=== PATIENT | female | born 1960 | race Caucasian/White ===

== ENCOUNTER 2016-10-09 12:32 | Emergency (ER) | payer MEDICARE, MEDICAID ==
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
[2016-10-09 12:39] VITALS: BP 121/73
== END 2016-10-09 14:10 | disposition home or self-care (01) ==
LOC: DL.ED 12:32
DX: M54.32 Sciatica, left side (principal); F41.9 Anxiety disorder, unspecified; F32.9 Major depressive disorder, single episode, unspecified; Z88.0 Allergy status to penicillin; Z88.2 Allergy status to sulfonamides; Z79.4 Long term (current) use of insulin; Z79.899 Other long term (current) drug therapy
CPT/HCPCS: 72100; 99283; 99284

== ENCOUNTER → 2017-06-14 | Day surgery (SDC) | payer MEDICARE, MEDICAID ==
[~2017-06-14] MED LIST: Balanced Salt Solution Ophth Irrig 500 ML Bottle IOCULAR ONE; Cataract Ophth Solution EYERT ONE; EPINEPHrine 1 MG/ML SDV ONE; Lidocaine 1% 30 ML SDV ONE; Lidocaine 4% 5 ML Amp EYERT ONE; Midazolam 1 MG/ML 2 ML SDV IV ONE; Moxifloxacin 0.5% Ophth Soln 3 ML Bottle EYERT ONE; Povidone-Iodine 5% Sterile Ophth Soln 30 ML Bottle EYERT ONE; Sodium Chloride 0.9% 10 ML Syringe FLUSH PRN; prednisoLONE Acetate 1% Ophth Susp 5 ML Bottle EYERT ONE
--- NOTE | 2017-06-14 11:06 | PCM.OPNOTE ---
- General Post-Op/Procedure Note Date of Surgery/Procedure: 06/14/17 Operative Procedure(s): Cataract extraction with lens implant right eye Findings: As above Pre Op Diagnosis: Cataract right eye Post-Op Diagnosis: Same Anesthesia Technique: MAC Primary Surgeon: Roberto Guerra Anesthesia Provider: Humza Pathology: None EBL in mLs: 0 Complications: None Condition: Good Free Text/Narrative:: PROCEDURE: After the risks and benefits of the procedure were explained informed consent was obtained from the patient and the patient was taken to the operating room. The patient was given topical Lidocaine 4% drops in the right eye. The patient was then prepped and draped in the sterile [facility] fashion. A wire lid speculum was placed in the right eye. A clear cornea temporal approach was used. A 7515 enterprise blade was used to make a paracentesis site around 11:00. Preservative-free Lidocaine 1% was injected intracamerally. Viscoelastic was placed in the anterior chamber. A 2.65 mm keratome blade was used to make a clear corneal incision around 9:00. A cystotome needle and Utrata forceps were used to perform continuous curvilinear capsulorhexis. Balanced Salt Solution was used to perform hydrodissection and hydrodelineation. The lens nucleus was removed using the divide and conquer phacoemulsification technique. Cumulative dissipated energy was 1.57. Remaining cortex was removed using irrigation- aspiration. Viscoelastic was placed in the capsular bag. PCBOO 17.5 diopter lens was then placed in the capsular bag. Remaining viscoelastic was removed using irrigation-aspiration. The lens was well centered in the capsular bag. The paracentesis and corneal incision were found to be water-tight. The patient was given topical Prednisolone and Vigamox drops. The speculum was removed and a shield was placed over the right eye. The patient was taken to recovery in stable condition. I certify that I was present for and performed the entire operative procedure. Roberto Guerra M.D.
[2017-06-14 12:23] VITALS: BP 126/83
== END | disposition home or self-care (01) ==
LOC: DL.SDS 08:05
PROVIDERS: ATTEND Ophthalmology
DX: H25.811 Combined forms of age-related cataract, right eye (principal); I10 Essential (primary) hypertension; E78.5 Hyperlipidemia, unspecified; E11.9 Type 2 diabetes mellitus without complications; E03.9 Hypothyroidism, unspecified; F32.9 Major depressive disorder, single episode, unspecified; F31.70 Bipolar disorder, currently in remission, most recent episode unspecified; F41.1 Generalized anxiety disorder; Z98.890 Other specified postprocedural states; Z87.891 Personal history of nicotine dependence; Z88.0 Allergy status to penicillin; Z79.899 Other long term (current) drug therapy; Z79.84 Long term (current) use of oral hypoglycemic drugs
CPT/HCPCS: 00142; 66984; A9270; C1780; J0171; J2250; J7050

== ENCOUNTER 2020-03-06 22:58 | Emergency (ER) | payer OTHER, MEDICARE, MEDICAID ==
[2020-03-06] MEDS ORDERED: Cyclobenzaprine 10 MG Tab PO ONE (22:59)
[2020-03-06 23:17] VITALS: BP 110/83; PULSE 87
[2020-03-06] MEDS ORDERED: Cyclobenzaprine 10 MG Tab ONE (23:23)
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
== END 2020-03-06 23:30 | disposition home or self-care (01) ==
LOC: DL.ED 22:58
DX: S39.012A Strain of muscle, fascia and tendon of lower back, initial encounter (principal); I10 Essential (primary) hypertension; E78.00 Pure hypercholesterolemia, unspecified; F41.9 Anxiety disorder, unspecified; F32.9 Major depressive disorder, single episode, unspecified; E11.9 Type 2 diabetes mellitus without complications; J45.909 Unspecified asthma, uncomplicated; Z88.0 Allergy status to penicillin; Z88.2 Allergy status to sulfonamides; Z79.899 Other long term (current) drug therapy; Z98.890 Other specified postprocedural states; Z79.84 Long term (current) use of oral hypoglycemic drugs; W18.30XA Fall on same level, unspecified, initial encounter
CPT/HCPCS: 99283; A9270

== ENCOUNTER 2020-10-28 15:41 | Emergency (ER) | payer MEDICARE, MEDICAID ==
[2020-10-28 16:10] VITALS: BP 127/79; PULSE 69
[2020-10-28] MEDS ORDERED: Ondansetron 4 MG/2 ML SDV IVPUSH ONE (18:09)
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
[2020-10-28 19:25] LABS: CORONAVIRUS COVID-19 NAA NEGATIVE (NEGATIVE)
[2020-10-28] MEDS ORDERED: Sodium Chloride 0.9% 1,000 ML IV ONE (19:42)
--- NOTE | 2020-10-28 20:30 | CT ---
PROCEDURE INFORMATION: Exam: CT Head Without Contrast Exam date and time: 10/28/2020 7:52 PM Age: 59 years old Clinical indication: Dizziness; Additional info: Dizzy TECHNIQUE: Imaging protocol: Computed tomography of the head without contrast. Radiation optimization: All CT scans at this facility use at least one of these dose optimization techniques: automated exposure control; mA and/or kV adjustment per patient size (includes targeted exams where dose is matched to clinical indication); or iterative reconstruction. COMPARISON: No relevant prior studies available. FINDINGS: Brain: There is a right occipital region of loss of crockett-white matter definition which could be artifact or cerebral edema. No intracranial hemorrhage. No midline shift. Cerebral ventricles: The ventricles and cortical sulci are normal in caliber. Bones/joints: Skull base and overlying calvarium are intact. No lytic or osteosclerotic lesions. Paranasal sinuses: Visualized sinuses are unremarkable. No fluid levels. Mastoid air cells: Visualized mastoid air cells are well aerated. Soft tissues: Unremarkable. IMPRESSION: There is a right occipital region of loss of crockett-white matter definition which could be artifact or cerebral edema.
[2020-10-28] MEDS ORDERED: Acetaminophen 325 MG Tab PO ONE (22:37)
== END 2020-10-28 23:11 ==
LOC: DL.ED 15:41
DX: R42 Dizziness and giddiness (principal); R93.0 Abnormal findings on diagnostic imaging of skull and head, not elsewhere classified; R11.2 Nausea with vomiting, unspecified; E78.00 Pure hypercholesterolemia, unspecified; I10 Essential (primary) hypertension; J45.909 Unspecified asthma, uncomplicated; E11.9 Type 2 diabetes mellitus without complications; Z88.0 Allergy status to penicillin; Z88.2 Allergy status to sulfonamides; Z79.4 Long term (current) use of insulin; Z79.899 Other long term (current) drug therapy; Z20.822 Contact with and (suspected) exposure to COVID-19; Z20.828 Contact with and (suspected) exposure to other viral communicable diseases
CPT/HCPCS: 0240U; 36415; 70450; 80053; 82962; 85025; 96374; 99284; 99285; A9270; J2405; J7030

== ENCOUNTER 2021-12-15 18:46 | Emergency (ER) | payer MEDICARE, MEDICAID ==
[2021-12-15 20:25] VITALS: BP 96/64
[2021-12-15 21:15] VITALS: PULSE 78
== END 2021-12-15 21:15 | disposition home or self-care (01) ==
LOC: DL.ED 18:46
DX: R05.9 Cough, unspecified (principal); E78.00 Pure hypercholesterolemia, unspecified; I10 Essential (primary) hypertension; E11.9 Type 2 diabetes mellitus without complications; E03.9 Hypothyroidism, unspecified; Z88.0 Allergy status to penicillin; Z88.2 Allergy status to sulfonamides; Z79.899 Other long term (current) drug therapy
CPT/HCPCS: 36415; 71046; 85025; 93005; 99284-25

== ENCOUNTER 2022-05-26 06:34 | Day surgery (SDC) | payer MEDICARE, MEDICAID ==
[2022-05-26] MEDS ORDERED: Dexamethasone 4 MG/ML SDV IV ONE (06:35)
[2022-05-26] MEDS ORDERED: Midazolam 1 MG/ML 2 ML SDV IV ONE (06:35)
[2022-05-26] MEDS ORDERED: Sodium Chloride 0.9% 10 ML Syringe IV ONE (06:35)
[2022-05-26] MEDS ORDERED: Acetaminophen 325 MG Tab PO PRN (07:00)
[2022-05-26] MEDS ORDERED: Timolol Maleate 0.5% Ophth Soln 5 ML Bottle EYELF ONE (07:00)
[2022-05-26] MEDS ORDERED: Phenylephrine 10% Ophth Soln 5 ML Bot EYELF PRN (07:00)
[2022-05-26] MEDS ORDERED: Povidone-Iodine 5% Sterile Ophth Soln 30 ML Bottle EYELF ONE ×2 (07:00→08:33)
[2022-05-26] MEDS ORDERED: Cataract Ophth Solution EYELF ONE (07:00)
[2022-05-26] MEDS ORDERED: Acetaminophen/Codeine 300-30 MG Tab PO PRN (07:00)
[2022-05-26] MEDS ORDERED: Tropicamide 1% Ophth Soln 15 ML Bottle EYELF ONE (07:00)
[2022-05-26] MEDS ORDERED: Moxifloxacin 0.5% Ophth Soln 3 ML Bottle EYELF ONE (07:00)
[2022-05-26] MEDS ORDERED: Proparacaine 0.5% Ophth Soln 15 ML Bottle EYELF ONE ×2 (07:00→08:30)
[2022-05-26] MEDS ORDERED: Ondansetron 4 MG/2 ML SDV IVPUSH PRN (07:00)
[2022-05-26] MEDS ORDERED: Sodium Chloride 0.9% 10 ML Syringe FLUSH PRN (07:00)
[2022-05-26] MEDS ORDERED: Diclofenac Sodium 0.1% Ophth Soln 5 ML Bottle EYELF ONE (08:35)
[2022-05-26] MEDS ORDERED: Apraclonidine 0.5% Ophth Soln 5 ML Bot EYELF ONE (08:35)
[2022-05-26] MEDS ORDERED: Dexamethasone/Neomycin/Polymyxin B Ophth Oint 3.5 GM Tube EYELF ONE (08:36)
[2022-05-26] MEDS ORDERED: Dexamethasone/Tobramycin 0.1-0.3% Ophth Oint 3.5 GM Tube EYELF ONE (08:36)
[2022-05-26] MEDS ORDERED: Lidocaine 1% 5 ML VIAL ONE (08:37)
[2022-05-26] MEDS ORDERED: Vancomycin 500 MG SDV EYELF ONE (08:38)
[2022-05-26] MEDS ORDERED: Balanced Salt Solution Ophth Irrig 500 ML Bottle IOCULAR ONE (08:38)
[2022-05-26] MEDS ORDERED: Chondroitin Sulfate/Hyaluronate Sodium Ophth Inj 0.75 ML Syringe EYELF ONE (08:39)
[2022-05-26 13:58] VITALS: BP 103/77; PULSE 77
== END 2022-05-26 09:55 | disposition home or self-care (01) ==
LOC: DL.SDS 06:34
PROVIDERS: ATTEND Ophthalmology
DX: E11.36 Type 2 diabetes mellitus with diabetic cataract (principal); H25.812 Combined forms of age-related cataract, left eye; F41.9 Anxiety disorder, unspecified; G47.00 Insomnia, unspecified; E03.9 Hypothyroidism, unspecified; K58.9 Irritable bowel syndrome, unspecified; I10 Essential (primary) hypertension; M19.90 Unspecified osteoarthritis, unspecified site; E78.00 Pure hypercholesterolemia, unspecified; F32.9 Major depressive disorder, single episode, unspecified; G43.909 Migraine, unspecified, not intractable, without status migrainosus; Z88.0 Allergy status to penicillin; Z88.2 Allergy status to sulfonamides; Z79.899 Other long term (current) drug therapy; Z79.84 Long term (current) use of oral hypoglycemic drugs; Z79.890 Hormone replacement therapy
CPT/HCPCS: 00142; 66984; 82947; A9270; J1100; J2250; J3370; J3490; V2632

== ENCOUNTER 2023-01-07 22:51 | Emergency (ER) | payer OTHER, MEDICARE, MEDICAID ==
[2023-01-07 23:15] VITALS: BP 127/109; PULSE 99
== END 2023-01-08 00:40 | disposition home or self-care (01) ==
LOC: DL.ED 22:51
DX: S13.4XXA Sprain of ligaments of cervical spine, initial encounter (principal); S33.5XXA Sprain of ligaments of lumbar spine, initial encounter; E78.00 Pure hypercholesterolemia, unspecified; I10 Essential (primary) hypertension; J45.909 Unspecified asthma, uncomplicated; E11.9 Type 2 diabetes mellitus without complications; E03.9 Hypothyroidism, unspecified; Z88.0 Allergy status to penicillin; Z88.2 Allergy status to sulfonamides; V49.10XA Passenger injured in collision with unspecified motor vehicles in nontraffic accident, initial encounter; Y92.410 Unspecified street and highway as the place of occurrence of the external cause
CPT/HCPCS: 72040; 99283

== ENCOUNTER 2024-10-12 07:35 | Emergency (ER) | payer MEDICARE, MEDICAID ==
[2024-10-12 07:55] VITALS: BP 103/72; PULSE 113
== END 2024-10-12 10:00 | disposition home or self-care (01) ==
LOC: DL.ED 07:35
DX: S70.11XA Contusion of right thigh, initial encounter (principal); I10 Essential (primary) hypertension; E78.00 Pure hypercholesterolemia, unspecified; J45.909 Unspecified asthma, uncomplicated; E11.9 Type 2 diabetes mellitus without complications; E03.9 Hypothyroidism, unspecified; Z88.0 Allergy status to penicillin; Z88.2 Allergy status to sulfonamides; Z79.899 Other long term (current) drug therapy; Z79.890 Hormone replacement therapy; Z79.4 Long term (current) use of insulin; W54.1XXA Struck by dog, initial encounter; Y93.89 Activity, other specified
CPT/HCPCS: 99283